=== PATIENT | male | born 1955 | race African-American/Black ===

== ENCOUNTER 2020-01-11 08:48 | Emergency (ER) | payer BC, MEDICARE, SELFPAY ==
--- NOTE | ~2020-01-11 | XR_ITS ---
EXAMINATION: XR abdomen/kub 1V DATE: 01/11/2020 12:27 INDICATION: Right lower quadrant abdominal pain. TECHNIQUE: A supine view of the abdomen on 2 radiographs was obtained. COMPARISON: CT abdomen and pelvis 01/11/2020 FINDINGS: There are no dilated loops of bowel. There is contrast in the ureters and bladder. There is moderate right hydronephrosis and proximal hydroureter. IMPRESSION: 1. Moderate right hydronephrosis and proximal hydroureter. Reviewed, dictated and finalized at location A.
--- NOTE | ~2020-01-11 | CT_ITS ---
EXAMINATION: CT abdomen pelvis w con DATE: 01/11/2020 09:58 INDICATION: Right lower quadrant abdominal pain. Nausea. TECHNIQUE: Computed tomography (CT) of the abdomen and pelvis was performed with 100 mL Omnipaque 350 intravenous contrast. Automated exposure control and iterative reconstruction technique were employe d. The dose-length product was 712.07 mGy-cm. COMPARISON: None. FINDINGS: The visualized portions of the lung bases demonstrate mild atelectasis. No pleural effusion . The heart size is normal. There are coronary artery calcifications. No pericardial effusion. The li lorenza, gallbladder, spleen, pancreas, and adrenal glands are normal. There are cysts in the kidneys flip suring up to 3.7 cm on the right. There is moderate right hydronephrosis and hydroureter to the level of 6 mm and 2 mm stones in proximal right ureter. The bladder is decompressed. There is diffuse blad leanna wall thickening, likely secondary to chronic outlet obstruction from the moderately enlarged pros galarza. There is diverticulosis of the colon without evidence of diverticulitis. There are no dilated l oops of bowel. The appendix is normal. There are no pathologically enlarged lymph nodes. There is no free intraperitoneal fluid. L2 vertebral body demonstrates cortical and trabecular thickening, consis tent with Paget disease. There is mild thoracolumbar spondylosis. IMPRESSION: 1. 6 mm and 2 mm stones in proximal ureter with moderate right hydronephrosis and proximal hydrourete r. Reviewed, dictated and finalized at location A. IMPRESSION: 1. 6 mm and 2 mm stones in proximal ureter with moderate right hydronephrosis a nd proximal hydroureter.
[2020-01-11 09:04] LABS: Basophils Percent Auto 0.3 % (0.2-1.2); Eosinophils Absolute Auto 0.1 K/mm3 (0-0.3); Eosinophils Percent Auto 0.6 % (0-4.4); Hematocrit 40.1 % (42.0-52.0); Hemoglobin 13.5 g/dL (14.0-18.0); Immature Granulocyte Absolute 0.03 K/mm3 (0.00-0.031); Immature Granulocyte Percent A 0.3 % (0-0.5); Lymphocytes Absolute Auto 1.94 K/mm3 (0.9-3.2); Lymphocytes Percent Auto 19.5 % (18.3-44.2); Mean Corpuscular HGB Conc 33.7 g/dl (32-36); Mean Corpuscular Hemoglobin 30.4 pg (26-34); Mean Corpuscular Volume 90.3 fl (80-100); Monocytes Absolute Auto 0.6 K/mm3 (0.1-0.6); Monocytes Percent Auto 6.1 % (2.6-8.5); Neutrophils Absolute Auto 7.3 K/mm3 (1.3-6.7); Neutrophils Percent Auto 73.2 % (45.5-73.1); Platelet Count Result 241 k/mm3 (150-375); Red Blood Count 4.44 M/mm3 (4.6-6.20); Red Cell Distribution Width 12.1 % (11.5-14.5)
[2020-01-11 09:07] VITALS: BP 150/84; PULSE 77; RESP 16; TEMP 36.1; O2SAT 98
[2020-01-11 09:13] LABS: Add Urine Microscopic? YES; Appearance Urine Clear (Clear); Bilirubin Urine Negative (Negative); Blood Urine 3+ (Negative); Color Urine Yellow (Yellow); Glucose Urine UA Negative (Negative); Ketones Urine Negative (Negative); Leukocyte Esterase Ur Trace LEU/UL (Negative); Mucus Urine Rare /lpf; Nitrate Urine Negative (Negative); Protein Urine 2+ mg/dL (Negative); RBC Urine >75 /hpf (0-2); Squamous Epithelial Cell Urine Rare /hpf (Few); Urobilinogen Urine Negative mg/dL (<2.0); WBC Urine 16-20 /hpf
[2020-01-11] MEDS: SODIUM CHLORIDE 0.9% IV 1,000 ML 999 ML IV CONT (09:15)
[2020-01-11 09:21] LABS: Alanine Aminotransferase 13 U/L (4-50); Albumin Level 4.6 g/dL (3.5-5.1); Alkaline Phosphatase 117 U/L (38-126); Anion Gap 7 mmol/L (8-16); Aspartate Amino Transferase 22 U/L (17-59); Bilirubin,Total 1.1 mg/dL (0.2-1.3); Blood Urea Nitrogen 12 mg/dL (9-20); Calcium 9.7 mg/dL (8.4-10.2); Carbon Dioxide 32 mmol/L (22-30); Chloride 99 mmol/L (98-107); Estimated CRCL calculation 80 ml/min; Estimated Glomerular Filt Rate > 60; Glucose 165 mg/dL (75-110); Lipase 65 U/L (23-300); Potassium 3.4 mmol/L (3.4-5.0); Sodium 138 mmol/L (137-145)
--- NOTE | 2020-01-11 09:22 | ED.ABDPAIN ---
HPI - Abdominal Pain General Chief Complaint: Abdominal Pain Stated Complaint: horrible abd pain Time Seen by Provider: 01/11/20 09:05 Source: patient and family Mode of arrival: ambulatory Limitations: no limitations History of Present Illness HPI narrative: Patient developed right abdominal pain, dull aching, 5-hour prior to arrival to the emergency room, constant, no radiation, no fever, no chills, no vomiting, no similar symptoms Patient reports nausea and dry heaves. Patient denies any aggravating or relieving factors. No history of abdominal surgery. History of diabetes, hypertension, hyperlipidemia, no smoking, social drinking no marijuana. Related Data Home Medications Medication Instructions Recorded Confirmed simvastatin 80 mg tablet 40 mg PO DAILY tablet 05/24/19 Allergies Allergy/AdvReac Type Severity Reaction Status Date / Time No Known Allergies Allergy Unverified 11/26/19 09:28 Review of Systems Review of Systems: Narrative: CONSTITUTIONAL: Denies fever, chills, or sweats. EYES: Denies visual changes, redness, or discharge. ENT: Denies rhinorrhea, congestion, sore throat, or otalgia. CARDIOVASCULAR: Denies chest pain, palpitations, or edema. RESPIRATORY: Denies cough or dyspnea. GASTROINTESTINAL: Denies abdominal pain, nausea, vomiting, or diarrhea. GENITOURINARY: Denies dysuria or hematuria. SKIN: Denies rash or itching. MUSCULOSKELETAL: Denies back pain, joint pain, or myalgia. NEUROLOGIC: Denies headache, numbness, or weakness. PSYCHIATRIC: Denies anxiety or depression. [facility] Past Medical History Medical History Controlled diabetes mellitus type II without complication HLD (hyperlipidemia) HTN (hypertension), benign Family History Family History Sibling Patient's sister is in good health, Onset Age: 53 Mother Family history of coronary artery disease, Onset Age: 50 Patient's mother is Father Patient's father is Social History Social History Smoking status: Never smoker Second hand tobacco smoke exposure: No Alcohol intake: current Drinks per week: 1 Substance use: never Substance use type: does not use Gender identity (if verbalized by the patient): Male Exam Narrative: Exam Narrative: General appearance: Well-developed, well-nourished Skin: Normal color Head: Normocephalic, nontraumatic Eyes: Clear conjunctiva ENT: Oropharynx normal, ears normal, nose normal Neck: Supple, nontender Chest and respiratory: Airway patent, no respiratory distress, no accessory muscle use Heart: Regular rate/rhythm Abdomen: Soft, nontender, no organomegaly, quiet bowel sounds Vascular: Normal peripheral pulses, normal capillary refill. Musculoskeletal: Normal range of motion, nontender back Neurologic: Alert and oriented ?3, GRI[employer] AND APPEALS COORDINATOR is normal as tested, no gross motor deficit Course Course Emergency Course: Stable Consultations Consultation #1: Dr. Ocampo, Ramon OVALLE, patient can go home, follow-up for lithotripsy coming Friday. And culture urine Date: 01/11/20 Time: 12:10 Vital Signs Vital signs: Vital Signs Temperature 36.1 C L 01/11/20 09:07 Pulse Rate 77 01/11/20 09:07 Respiratory Rate 16 01/11/20 09:07 Blood Pressure 150/84 H 01/11/20 09:07 Pulse Oximetry 98 01/11/20 09:07 Temperature 36.1 C L 01/11/20 09:07 Pulse Rate 79 01/11/20 11:25 Respiratory Rate 16 01/11/20 11:25 Blood Pressure 126/69 01/11/20 11:25 Pulse Oximetry 97 01/11/20 11:25 MDM - Abdominal Pain
--- NOTE | 2020-01-11 09:25 | PC.NURSE ---
PT TO CT AT THIS TIME, WILL MEDICATE PER PROVIDER ORDER UPON RETURN.
[2020-01-11] MEDS: ONDANSETRON INJ 4 MG/2 ML VIAL IV PUSH (09:53)
[2020-01-11] MEDS: MORPHINE SULFATE 4 MG/ML INJ IV PUSH (09:53)
[2020-01-11 10:43] VITALS: BP 128/77; PULSE 89; RESP 18; O2SAT 99
[2020-01-11 11:25] VITALS: BP 126/69; PULSE 79; RESP 16; O2SAT 97
[2020-01-11 12:49] VITALS: BP 114/66; PULSE 75; RESP 16; O2SAT 100
== END 2020-01-11 12:50 | disposition home or self-care (01) ==
PROVIDERS: Emergency Provider Emergency Medicine; PCP Family Medicine
DX: N13.2 Hydronephrosis with renal and ureteral calculous obstruction (principal); E11.9 Type 2 diabetes mellitus without complications; I10 Essential (primary) hypertension; E78.5 Hyperlipidemia, unspecified
CPT/HCPCS: 36415; 74018; 74177; 80053; 81001; 83690; 85025; 87086; 96361; 96374; 96375; 99284; J2270; J2405; J7030; Q9967

== ENCOUNTER 2020-01-12 01:21 | Outpatient (CLI) | payer BC, MEDICARE, SELFPAY ==
[2020-01-12 20:48] LABS: SARS-CoV-2 RNA PCR Negative
== END 2020-01-12 01:22 | disposition home or self-care (01) ==
LOC: ANHCOVIDDT 01:22
PROVIDERS: PCP Family Medicine; Visit Provider Urology
DX: Z01.812 Encounter for preprocedural laboratory examination (principal); Z11.59 Encounter for screening for other viral diseases
CPT/HCPCS: 87635; C9803; U0003

== ENCOUNTER 2020-01-14 01:42 | Day surgery (SDC) | payer BC, MEDICARE, SELFPAY ==
[2020-01-12 08:54] VITALS: BMI 25.9
[2020-01-14] VITALS (8 sets, daily range): BP systolic 111–145; BP diastolic 74–95; PULSE 57–85; RESP 13–20; TEMP 36.2–36.3; O2SAT 96–100
--- NOTE | ~2020-01-14 | XR_ITS ---
EXAMINATION: XR retrograde pyelo w/stent RT DATE: 01/14/2020 10:56 INDICATION: Right internal ureteral stent placement TECHNIQUE: 5 fluoroscopic spot images of the abdomen and pelvis were obtained during procedure perfor med by Dr. Ocampo. Radiologist was not present for the imaging or procedure. The amount of fluorosc opy time used during this procedure was 1.2 minutes. COMPARISON: CT and KUB dated 01/11/2020 FINDINGS: Medical Reception Specialist image demonstrates persistent stones along the mid right ureter projecting over the tip of the right transverse process of L4. Subsequent image demonstrates a catheter advanced beyond the stone in to the right renal pelvis with retrograde contrast injection demonstrating persistent moderate right hydroureteronephrosis. Final images demonstrate placement of a right internal ureteral stent with loo ps formed at the right renal pelvis and bladder. Stone is no longer visualized and has likely been ex tracted. IMPRESSION: 1. Right internal ureteral stent in expected position post likely extraction of a mid right ureteral stone. See procedure note for further detail. Reviewed, dictated and finalized at location B.
--- NOTE | 2020-01-14 07:50 | PM.IMHP ---
H&P: HPI History of Present Illness Date/Time: 01/14/20 07:50 Chief complaint: right ureteral stone Narrative: Ilia Ghosh Jr. is a 64 year old male who presented to ER earlier in week with right flank pain. He was found to have a 6mm and 2 mm right ureteral stones with hydro. He now presents for ESWL of right ureteral stones with possible cystoscopy, retrograde, ureteroscopy with holmium laser , stone extraction and stent placement. Review of Systems Review of Systems: All systems reviewed & are unremarkable except as noted in HPI and below PMFSH Past Medical History Medical History Controlled diabetes mellitus type II without complication HLD (hyperlipidemia) HTN (hypertension), benign Family History Family History Sibling Patient's sister is in good health, Onset Age: 53 Mother Family history of coronary artery disease, Onset Age: 50 Patient's mother is Father Patient's father is Social History Social History Smoking status: Never smoker Second hand tobacco smoke exposure: No Alcohol intake: current Drinks per week: 1 Substance use: never Substance use type: does not use Gender identity (if verbalized by the patient): Male Spiritual care concerns: No Meds Home Medications and Allergies Home Medications Medication Instructions Recorded Confirmed Type alprazolam 0.25 mg tablet 0.25 mg PO DAILY PRN #8 tablet 04/13/19 01/12/20 Rx simvastatin 80 mg tablet 40 mg PO DAILY tablet 05/24/19 01/12/20 History chlorthalidone 25 mg tablet 25 mg PO DAILY #90 tablet 10/26/19 01/12/20 Rx metformin 500 mg tablet,extended 500 mg PO DAILY #30 tablet 12/02/19 01/12/20 Rx release 24 hr hydrocodone-acetaminophen [[place]] 1 tablet PO Q4H PRN #20 tablet 01/11/20 01/12/20 Rx ondansetron 4 mg PO Q6H PRN #10 tablet 01/11/20 01/12/20 Rx tamsulosin [Flomax] 0.4 mg PO DAILY #10 cap 01/11/20 01/12/20 Rx Allergies Allergy/AdvReac Type Severity Reaction Status Date / Time No Known Allergies Allergy Unverified 01/12/20 08:55 Exam Const: General: comfortable Resp: Effort & Inspection: normal respiratory effort Cardio: Rhythm: regular rhythm Skin: General skin exam: normal color Neuro: Speech: normal speech Assessment and Plan Assessment and plan (1) Right ureteral calculus: Code(s): N20.1 - Calculus of ureter Status: Acute Assessment and Plan: Plan for right ureteral eswl with possible cysto, retrograde, ureteroscopy with stone extraction, laser and stent placement.
--- NOTE | 2020-01-14 08:16 | ECG_ITS ---
Measurements Intervals Hernandez Rate: 77 P: 52 NE: 191 QRS: 100 QRSD: 153 T: 30 QT: 398 QTc: 451 Interpretive Statements SINUS RHYTHM RIGHT BUNDLE BRANCH BLOCK BASELINE ARTIFACT- I, II, III, AVR, AVL, AVF, V1-V6 ABNORMAL ECG Electronically Signed On 01-14-2020 9:12:43 CDT by Pa Thorne D.O.
--- NOTE | 2020-01-14 08:48 | WPDANESEPPF ---
Anes - Initial Pre Proc Eval Procedure: Operation Date: 01/14/20 09:30 Proposed Procedures p Cystoscopy, Right Ureteroscopy, Right Retrograde Pyelogram, Right Stone Extraction, Possible Right Stent Placement - Jhonny Ocampo MD s Possible Holmium Laser Procedure - Jhonny Ocampo MD Date/Time: 01/14/20 08:48 Surgeon: Jhonny Ocampo MD Pre Op Diagnosis: right ureteral stone Patient Data Age: 64 Gender: M Height: 6 ft 4 in Weight: 96.62 kg Allergies Allergy/AdvReac Type Severity Reaction Status Date / Time No Known Allergies Allergy Unverified 01/14/20 08:29 Home Medications Medication Instructions Recorded Confirmed Type alprazolam 0.25 mg tablet 0.25 mg PO DAILY PRN #8 tablet 04/13/19 01/14/20 Rx simvastatin 80 mg tablet 40 mg PO DAILY tablet 05/24/19 01/14/20 History chlorthalidone 25 mg tablet 25 mg PO DAILY #90 tablet 10/26/19 01/14/20 Rx metformin 500 mg tablet,extended 500 mg PO DAILY #30 tablet 12/02/19 01/14/20 Rx release 24 hr hydrocodone-acetaminophen [[place]] 1 tablet PO Q4H PRN #20 tablet 01/11/20 01/14/20 Rx ondansetron 4 mg PO Q6H PRN #10 tablet 01/11/20 01/14/20 Rx tamsulosin [Flomax] 0.4 mg PO DAILY #10 cap 01/11/20 01/14/20 Rx Patient hx anesthesia problems: none Family hx anesthesia problems: none PMFSH Past Medical History Medical History Controlled diabetes mellitus type II without complication HLD (hyperlipidemia) HTN (hypertension), benign Family History Family History Sibling Patient's sister is in good health, Onset Age: 53 Mother Family history of coronary artery disease, Onset Age: 50 Patient's mother is Father Patient's father is Social History Social History Smoking status: Never smoker Second hand tobacco smoke exposure: No Alcohol intake: current Drinks per week: 1 Substance use: never Substance use type: does not use Gender identity (if verbalized by the patient): Male Spiritual care concerns: No Anes - Eval Final PreProcedure Day of Procedure 01/14/20 08:48 Patient weight: overweight Heart: regular rate and rhythm Lungs: clear to auscultation Airway: Mallampati scale class II Neurological: alert and oriented Last oral intake: >/= 8 hours ASA classification: III Emergent: no Anesthetic plan: proceed Anesthesia type and monitoring: general LMA and standard monitoring Informed Consent: The patient's anesthetic plan and its attendant risks and benefits were discussed with the patient/family/POA. Questions were solicited and answers provided to the satisfaction of the patient/family/POA.
[2020-01-14] MEDS: LACTATED RINGERS 1,000 ML 30 ML IV CONT (08:50)
[2020-01-14 08:52] LABS: Glucose Point of Care 119 (65-105)
--- NOTE | 2020-01-14 09:28 | WPDHPUPDATE1 ---
History and Physical Update Update Date/Time: 01/14/20 09:28 History and Physical has been reviewed, including an updated exam of the patient. There are NO changes in the patient's condition. Risks, benefits, and alternatives have been discussed and questions answered. Patient agrees to proceed with procedure. Plan for cystoscopy, right rpg, right ureteroscopy with stone extraction, laser , stent placement.
[2020-01-14] MEDS: ceFAZolin 2 GM/D5W 50 ML 2 GM/50 ML BAG IVPB (09:33)
[2020-01-14] MEDS: LIDOCAINE HCL 2% GEL UROJET 10 ML PKG MUCOUS MEM (09:50)
--- NOTE | 2020-01-14 10:49 | P.OP_ITS ---
Procedure Note - Detailed Date of procedure: 01/14/20 Pre-op diagnosis: right ureteral stone Procedure performed: Cystoscopy, right retrograde pyelogram, right ureteroscopy with holmium laser, right ureteral stones stone extraction, right stent placement 4.8 Armenian contour Description of procedure: patient was taken to the operative suite and correctly identified. Once anesthesia was obtained he was placed in a dorsal lithotomy position and prepped and draped usual sterile fashion. 22 Armenian scope was inserted into the bladder. He has somewhat of an enlarged prostate with an elevated median bar. There are no tumors noted. The right year orifice was cannulated with a guidewire. We had to manipulate an angled Glidewire past the stone up into the kidney. We then placed a ureteral access sheath. A mini flexible ureteral scope was then passed. The stone was visualized but impacted. Using a 273 micron fiber we fragment the stone multiple pieces. Retrieve the largest pieces. There were no residual stones noted in the ureter. Pyelogram was then performed. 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 A wire was located in the lower pole system. 4.8 Armenian contour stent was then placed over guidewire. Proximal end was coiled in the lower pole the distal in the bladder. 2% viscous lidocaine was inserted urethra patient is taken recovery stable condition. He will follow up in approximately 10 days for stent removal. Surgeon: Jhonny Ocampo MD Drains: Yes Packing: No Pathology: yes Complications: No immediate complications Condition: stable Disposition: PACU
== END 2020-01-14 12:24 | disposition home or self-care (01) ==
PROVIDERS: PCP Family Medicine; Visit Provider Urology
PROC: (CPT 52352; principal; 2020-01-14 09:30)
PROC: (CPT 52352; 2020-01-14 09:30)
DX: N13.2 Hydronephrosis with renal and ureteral calculous obstruction (principal); Q62.5 Duplication of ureter; Z87.440 Personal history of urinary (tract) infections; E11.9 Type 2 diabetes mellitus without complications; Z79.84 Long term (current) use of oral hypoglycemic drugs; I10 Essential (primary) hypertension; E78.5 Hyperlipidemia, unspecified; Z79.899 Other long term (current) drug therapy
CPT/HCPCS: 52352; 52332; 74420; 82365; 88300; 93005; A9270; C1769; C1894; C2617; J0690; J2250; J2405; J2704; J3010; J7120; Q9966

== ENCOUNTER 2020-04-04 07:49 | Outpatient (CLI) | payer BC, MEDICARE, SELFPAY ==
--- NOTE | ~2020-04-04 | CT_ITS ---
EXAMINATION: CT abdomen pelvis wo/w con DATE: 04/04/2020 08:29 INDICATION: Kidney mass. TECHNIQUE: Computed tomography (CT) of the abdomen and pelvis was performed without and with 100 mL O mnipaque 350 intravenous contrast. Automated exposure control and iterative reconstruction technique were employed. The dose-length product was 1006.63 mGy-cm. COMPARISON: CT abdomen and pelvis 01/11/2020 FINDINGS: The visualized portions of the lung bases demonstrate mild atelectasis. No pleural effusion . The heart size is normal. There are coronary artery calcifications. No pericardial effusion. The li lorenza, spleen, gallbladder, pancreas, and adrenal glands are normal. There are cysts in the kidneys flip suring up to 3.9 cm on the right. There are 2 stones in right kidney with the larger measuring 4 mm. There is a 2 mm stone in left kidney. There is diffuse bladder wall thickening, likely secondary to c hronic outlet obstruction from the moderately enlarged prostate. There is diverticulosis of the colon without evidence of diverticulitis. There are no dilated loops of bowel. The appendix is normal. The re are no pathologically enlarged lymph nodes. There is no free intraperitoneal fluid. There is mild lumbar spondylosis. There is Paget disease involving L2 vertebral body and the sacrum. IMPRESSION: 1. Benign cysts in the kidneys. 2. Bilateral nonobstructing kidney stones. Reviewed, dictated and finalized at location A. OLOGY AIDE
[2020-04-04 08:20] LABS: Estimated Glomerular Filt Rate > 60
== END 2020-04-04 07:50 | disposition home or self-care (01) ==
PROVIDERS: PCP Family Medicine; Visit Provider Urology
DX: N28.89 Other specified disorders of kidney and ureter (principal); N20.0 Calculus of kidney
CPT/HCPCS: 74178; Q9967

== ENCOUNTER 2022-06-21 00:59 | Day surgery (SDC) | payer MEDICARE, BC, SELFPAY ==
[2022-06-07 13:18] VITALS: BMI 25.3
--- NOTE | 2022-06-20 14:46 | PM.HPGS ---
History of Present Illness History of Present Illness Consent: Risks, benefits, and alternatives have been discussed and questions answered. Patient agrees to proceed with procedure. Chief complaint: neoplasm screening Narrative: Ilia Ghosh Jr. is a 67 year old male Referred for colon cancer screening. He has had multiple polyps removed in the past. His last colonoscopy was 6 ago Review of Systems Review of Systems: All systems reviewed & are unremarkable except as noted in HPI and below PMFSH Past Medical History Medical History Controlled diabetes mellitus type II without complication HLD (hyperlipidemia) HTN (hypertension), benign Prostate cancer Family History Family History Sibling Patient's sister is in good health, Onset Age: 53 Mother Family history of coronary artery disease, Onset Age: 50 Patient's mother is Father Patient's father is Social History Social History Smoking status: Never smoker Second hand tobacco smoke exposure: No Alcohol intake: current Drinks per week: 1 Alcohol use details: social Substance use: never Substance use type: does not use Living arrangements: with family Occupation/Education: retired Gender identity (if verbalized by the patient): Male Sexual Orientation (if Verbalized by the Patient): Straight or Heterosexual Spiritual care concerns: No Meds Home Medications and Allergies Home Medications Medication Instructions Recorded Confirmed Type alprazolam 0.25 mg tablet (Xanax) 0.25 mg PO DAILY PRN anxiety #8 04/13/19 06/07/22 Rx tabs rosuvastatin 10 mg tablet (Crestor) 10 mg PO DAILY #90 tabs 07/11/21 06/07/22 Rx chlorthalidone 25 mg tablet 25 mg PO DAILY #90 tabs 01/18/22 06/07/22 Rx metformin 500 mg tablet,extended 1,000 mg PO DAILY 06/07/22 06/07/22 History release 24 hr Allergies Allergy/AdvReac Type Severity Reaction Status Date / Time No Known Allergies Allergy Verified 06/21/22 08:07 Exam Resp: Auscultation: clear to auscultation bilaterally Cardio: Rate: regular rate Rhythm: regular rhythm GI: GI Palp: Yes Soft to palpation and No Tenderness to palpation present (GI) Assessment and Plan Assessment and plan (1) Colon cancer screening: Code(s): Z12.11 - Encounter for screening for malignant neoplasm of colon Status: Acute Assessment and Plan: Colonoscopy with possible biopsy or polypectomy or cautery or injection of substances.
[2022-06-21 08:08] VITALS: BP 129/80; PULSE 83; RESP 18; TEMP 36.6; O2SAT 99
[2022-06-21] MEDS: LACTATED RINGERS 1,000 ML 150 ML IV CONT (08:18)
[2022-06-21 08:22] LABS: Glucose Point of Care 102 mg/dl (65-105)
--- NOTE | 2022-06-21 08:39 | WPDANESEPPF ---
Anes - Initial Pre Proc Eval Procedure: Operation Date: 06/21/22 09:00 Proposed Procedures p Screening Colonoscopy - Brandt Presley MD Date/Time: 06/21/22 08:39 Surgeon: Brandt Presley MD Pre Op Diagnosis: neoplasm screening Patient Data Age: 67 Gender: M Height: 1.93 m Weight: 94.9 kg Last Vital Signs Temp 36.6 C 06/21/22 08:08 Pulse 83 06/21/22 08:08 Resp 18 06/21/22 08:08 BP 129/80 06/21/22 08:08 Pulse Ox 99 06/21/22 08:08 O2 Del Method Room Air 06/21/22 08:08 Allergies Allergy/AdvReac Type Severity Reaction Status Date / Time No Known Allergies Allergy Verified 06/21/22 08:07 Home Medications Medication Instructions Recorded Confirmed Type alprazolam 0.25 mg tablet (Xanax) 0.25 mg PO DAILY PRN anxiety #8 04/13/19 06/07/22 Rx tabs rosuvastatin 10 mg tablet (Crestor) 10 mg PO DAILY #90 tabs 07/11/21 06/07/22 Rx chlorthalidone 25 mg tablet 25 mg PO DAILY #90 tabs 01/18/22 06/07/22 Rx metformin 500 mg tablet,extended 1,000 mg PO DAILY 06/07/22 06/07/22 History release 24 hr Laboratory Tests 06/21/22 08:18 POC Capillary Glucose 102 mg/dl mg/dl (65-105) Patient hx anesthesia problems: none Family hx anesthesia problems: none Results Review: All pre-operative results and documents have been reviewed as part of the pre-operative evaluation. [facility] Past Medical History Medical History Controlled diabetes mellitus type II without complication HLD (hyperlipidemia) HTN (hypertension), benign Prostate cancer Family History Family History Sibling Patient's sister is in good health, Onset Age: 53 Mother Family history of coronary artery disease, Onset Age: 50 Patient's mother is Father Patient's father is Social History Social History Smoking status: Never smoker Second hand tobacco smoke exposure: No Alcohol intake: current Drinks per week: 1 Alcohol use details: social Substance use: never Substance use type: does not use Living arrangements: with family Occupation/Education: retired Gender identity (if verbalized by the patient): Male Sexual Orientation (if Verbalized by the Patient): Straight or Heterosexual Spiritual care concerns: No Anes - Eval Final PreProcedure Day of Procedure 06/21/22 08:39 Patient weight: normal Heart: regular rate and rhythm Lungs: clear to auscultation Airway: Mallampati scale class II Neurological: alert and oriented Last oral intake: >/= 8 hours ASA classification: III Emergent: no Anesthetic plan: proceed Anesthesia type and monitoring: general GIVS and standard monitoring Results Review: All pre-operative results and documents have been reviewed as part of the pre-operative evaluation. Informed Consent: The patient's anesthetic plan and its attendant risks and benefits were discussed with the patient/family/POA. Questions were solicited and answers provided to the satisfaction of the patient/family/POA.
[2022-06-21 09:16] VITALS: BP 92/63; PULSE 85; RESP 16; O2SAT 96
[2022-06-21 09:26] VITALS: BP 94/59; PULSE 74; RESP 18; O2SAT 99
[2022-06-21 09:36] VITALS: BP 96/61; PULSE 72; RESP 16; O2SAT 98
== END 2022-06-21 09:44 | disposition home or self-care (01) ==
PROVIDERS: PCP Family Medicine; Visit Provider Internal Medicine Gastroenterology
PROC: 0DJD8ZZ Inspection of Lower Intestinal Tract, Via Natural or Artificial Opening Endoscopic (ICD-10-PCS; CPT 45378; principal; 2022-06-21 09:00)
DX: Z12.11 Encounter for screening for malignant neoplasm of colon (principal); D12.4 Benign neoplasm of descending colon; K64.8 Other hemorrhoids; K57.30 Diverticulosis of large intestine without perforation or abscess without bleeding; E11.9 Type 2 diabetes mellitus without complications; E78.5 Hyperlipidemia, unspecified; I10 Essential (primary) hypertension; Z85.46 Personal history of malignant neoplasm of prostate; Z79.84 Long term (current) use of oral hypoglycemic drugs
CPT/HCPCS: 45385; 82948; 88305; J2704; J7120

== ENCOUNTER 2022-11-01 08:11 | Emergency (ER) | payer MEDICARE, BC, SELFPAY ==
--- NOTE | ~2022-11-01 | XR_ITS ---
XR chest 2V 11/01/2022 08:58 Indication: Productive cough. Covid. Procedure: 2 view chest Comparison: No prior studies for comparison. Findings: There is bibasilar atelectasis. No focal pneumonia, edema, pleural effusion or pneumothorax . No acute osseous abnormality. Impression: 1: Bibasilar atelectasis. Reviewed, dictated and finalized at location [] Impression: 1: Bibasilar atelectasis.
[2022-11-01 08:36] VITALS: BP 121/97; PULSE 119; RESP 18; TEMP 35.9; O2SAT 98
--- NOTE | 2022-11-01 08:40 | ED.URI ---
HPI - URI/Sore Throat General Chief Complaint: Upper Respiratory Infection Stated Complaint: sorethroat Time Seen by Provider: 11/01/22 08:40 Source: patient Mode of arrival: ambulatory Limitations: no limitations History of Present Illness HPI Narrative: 59-year-old male presents with complaint cough, fatigue, headache, sore throat starting 3 days ago. Denies chest pain and shortness of breath. Taking [id number] Delsym with no relief of cough. States cough is keeping him up at night. Patient recently got back from [place] [employer]. All systems reviewed and negative except as noted above. Related Data Home Medications Medication Instructions Recorded Confirmed metformin 500 mg tablet,extended 1,000 mg PO DAILY 06/07/22 11/01/22 release 24 hr Allergies Allergy/AdvReac Type Severity Reaction Status Date / Time No Known Allergies Allergy Verified 11/01/22 08:33 Review of Systems Review of Systems: CONSTITUTIONAL: Denies fever, chills, or sweats. Reports fatigue. EYES: Denies visual changes, redness, or discharge. ENT: Reports rhinorrhea, congestion, sore throat. Denies otalgia. CARDIOVASCULAR: Denies chest pain, palpitations, or edema. RESPIRATORY: REports cough. Denies dyspnea. GASTROINTESTINAL: Denies abdominal pain, nausea, vomiting, or diarrhea. GENITOURINARY: Denies dysuria or hematuria. SKIN: Denies rash or itching. MUSCULOSKELETAL: Denies back pain, joint pain, or myalgia. NEUROLOGIC: Denies headache, numbness, or weakness. PSYCHIATRIC: Denies anxiety or depression. All other systems reviewed are negative, except as documented in HPI. [facility] Past Medical History Medical History Controlled diabetes mellitus type II without complication HLD (hyperlipidemia) HTN (hypertension), benign Prostate cancer Family History Family History Sibling Patient's sister is in good health, Onset Age: 53 Mother Family history of coronary artery disease, Onset Age: 50 Patient's mother is Father Patient's father is Social History Social History Social History: Caffeine-daily Smoking status: Never smoker Second hand tobacco smoke exposure: No Alcohol intake: current Drinks per week: 1 Alcohol use details: social Substance use: never Substance use type: does not use Lack of Transportation: No Lack of Food: Never True Current Housing: I Have Housing Concerned About Future Housing: No Difficulty Paying for Meds: No Currently Unemployed: No Education: Master's Degree or Higher Difficulty w/ Childcare or Family Care: No Living arrangements: with family Occupation/Education: retired Gender identity (if verbalized by the patient): Male Sexual Orientation (if Verbalized by the Patient): Straight or Heterosexual Spiritual care concerns: No Comments At time of signature, agree with nursing past medical, surgical, social and family history. There is no relevant family history pertinent to the presenting complaint. Exam Narrative: GENERAL: This is a well-nourished, well-developed patient, in no apparent distress. HEAD: normocephalic, atraumatic. EYES: PERRL. Sclera clear/white. Vision is grossly intact. EARS: External ears normal, auditory canals clear and without drainage, TMs normal without perforation. Hearing grossly intact. NOSE: External nose normal with no obvious nasal discharge, nares without redness, no rhinorrhea. THROAT: Mucous membranes moist, posterior pharynx clear. NECK: Neck supple, non-tender without lymphadenopathy, masses or thyromegaly. CARDIOVASCULAR: Regular rate and rhythm without murmurs, gallops, or rubs. RESPIRATORY: Clear to auscultation. Breath sounds equal bilaterally. No wheezes, rales, or rhonchi. SKIN: warm, Dry, intac
== END 2022-11-01 09:18 | disposition home or self-care (01) ==
PROVIDERS: Emergency Provider Nurse Practitioner Family; PCP Family Medicine
DX: U07.1 COVID-19 (principal); E11.9 Type 2 diabetes mellitus without complications; E78.5 Hyperlipidemia, unspecified; I10 Essential (primary) hypertension; Z85.46 Personal history of malignant neoplasm of prostate
CPT/HCPCS: 71046; 87426; 99213; C9803; G0463